=== PATIENT | male | born 1985 ===

== ENCOUNTER 2017-07-27 19:12 | Emergency (ER) | payer SELFPAY ==
--- NOTE | 2017-07-27 19:32 | UC ---
Skin Complaint HPI - HPI Summary HPI Summary: 32 yo male presents with tick bite to left lateral thigh. Pulled it off [employer]. Unsure how long it was attached. He says the tick was not engorged. Denies fever , chills, myalgias. - History of Current Complaint Time Seen by Provider: 07/27/17 19:32 Stated Complaint: TICK BITE Hx Obtained From: Patient Onset/Duration: Sudden Onset Current Severity: None - Allergy/Home Medications Allergies/Adverse Reactions: Allergies Allergy/AdvReac Type Severity Reaction Status Date / Time No Known Allergies Allergy Verified 07/27/17 19:35 Review of Systems Constitutional: Negative Skin: Other - Tick bite left leg Respiratory: Negative Cardiovascular: Negative Neurovascular: Negative Musculoskeletal: Negative Neurological: Negative Psychological: Negative All Other Systems Reviewed And Are Negative: Yes PMH/Surg Hx/FS Hx/Imm Hx - Additional Past Medical History Additional PMH: None Previously Healthy: Yes - Surgical History Surgical History: None - Family History Known Family History: Positive: None - Social History Occupation: Employed Full-time Lives: With Family Alcohol Use: Occasionally Substance Use Type: None Smoking Status (MU): Never Smoked Tobacco Physical Exam - Summary Physical Exam Summary: GENERAL: NAD. WDWN. No pain distress. SKIN: LEFT LATERAL THIGH: there is a 5mm diameter of mild erythema and edema with central 1mm area of superficial skin loss. No streaking, bleeding, or drainage. NECK: Supple. Nontender. No lymphadenopathy. CHEST: No accessory muscle use. Breathing comfortably and in no distress. CV: RRR. Without m/r/g. NEURO: Alert. CN II-XII grossly intact. PSYCH: Age appropriate behavior. Triage Information Reviewed: Yes Vital Signs: Vital Signs: Temp Pulse Resp BP Pulse Ox 98.7 F 56 16 127/78 100 07/27/17 19:27 07/27/17 19:27 07/27/17 19:27 07/27/17 19:27 07/27/17 19:27 Course/Dx - Course Course Of Treatment: Tick bite left leg. Pt would like prophylactic doxycycline - given in clinic. - Diagnoses Provider Diagnoses: Tick bite left leg Discharge - Sign-Out/Discharge Documenting (check all that apply): Discharge/Admit/Transfer - Discharge Plan Condition: Stable Disposition: HOME Patient Education Materials: Lyme Disease (ED), Tick Bite (ED) Referrals: No Primary Care Phys,NOPCP [Primary Care Provider] - Additional Instructions: If you develop a fever, shortness of breath, chest pain, new or worsening symptoms - please call your PCP or go to the ED. TICK BITE: You have been bitten by a tick. Once the tick is removed, these "bites" usually cause no problems. Tick fever, tick paralysis, [place] Spotted fever, and Lyme disease are uncommon -- but you should mention this tick bite to your doctor if you develop unusual symptoms in the next several weeks. If you develop any of the following, please see your physician promptly: (1) Fever, chills, or generalized malaise associated with a headache. (2) A red round area at the site of the bite (or elsewhere) (3) Joint pain, joint swelling or generalized weakness. (4) Redness, swelling, or drainage at the site of the bite. - Billing Disposition and Condition Condition: STABLE Disposition: Home
[2017-07-27 19:35] VITALS: BP 127/78
[2017-07-27] MEDS ORDERED: DOXYcycline CAP(*) 100 MG PO ONE (19:40)
== END 2017-07-27 19:51 | disposition home or self-care (01) ==
LOC: UCEAST 19:12
DX: S70.362A Insect bite (nonvenomous), left thigh, initial encounter (principal); W57.XXXA Bitten or stung by nonvenomous insect and other nonvenomous arthropods, initial encounter; Y93.9 Activity, unspecified; Y92.9 Unspecified place or not applicable
CPT/HCPCS: 99202; A9270-GY; G0463